=== PATIENT | male | born 1945 | race Caucasian/White ===

== ENCOUNTER 2022-04-18 13:24 | Outpatient (CLI) | payer MEDICARE, OTHER, SELFPAY | END 2022-04-18 13:25 | disposition home or self-care (01) | PROVIDERS: PCP Internal Medicine; Visit Provider Family Medicine | DX: M51.36 Other intervertebral disc degeneration, lumbar region (principal); M54.16 Radiculopathy, lumbar region | CPT/HCPCS: 62323; J0702; Q9966 ==